=== PATIENT | female | born 1970 | race Caucasian/White ===

== ENCOUNTER 2017-04-18 06:19 | Observation (INO) ==
[2017-04-18] MEDS ORDERED: Aspirin 81 MG TAB.CHEW PO ONE (07:17)
[2017-04-18] MEDS ORDERED: 0.9 % Sodium Chloride 500 ML IVC ONE (07:17)
[2017-04-18 07:29] LABS: Basophils % 0.4 %; Eosinophils # 0.1 K/mcL (0.0-0.6); Eosinophils % 0.8 %; Hemoglobin 11.9 g/dL (11.5-15.4); Immature Granulocytes % 0.9 % (0-4); Lymphocytes # 1.5 K/mcL (0.6-4.6); Lymphocytes % 16.7 %; Mean Corpuscular HGB Conc 32.2 g/dL (31.6-35.5); Mean Corpuscular Hemoglobin 26.3 pg (28.0-33.3); Mean Corpuscular Volume 81.7 fL (83.0-100.0); Mean Platelet Volume 9.2 fL (9.4-12.4); Monocytes # 0.7 K/mcL (0.0-1.3); Monocytes % 7.4 %; Neutrophils # 6.7 K/mcL (1.6-8.9); Platelet Count 234 K/mcL (140-400); Red Blood Count 4.53 M/mcL (3.82-4.97); Red Cell Distribution Width 15.6 % (11.5-14.5); Segmented Neutrophils % 73.8 %
--- NOTE | 2017-04-18 07:30 | Emergency Department Note ---
Disposition Clinical Impression: Pulmonary embolism Qualifiers: Pulmonary embolism type: other Chronicity: unspecified Acute cor pulmonale presence: without acute cor pulmonale Qualified Code(s): I26.99 - Other pulmonary embolism without acute cor pulmonale Chest pain Qualifiers: Chest pain type: unspecified Qualified Code(s): R07.9 - Chest pain, unspecified Disposition: Admitted As Inpatient Condition: Fair Referrals: Bety Craig MD [Primary Care Provider] - Forms: ED Satisfaction Letter Chest Pain HPI - General Chief Complaint: ED Chest Pain Stated Complaint: chest pain dx PE yesterday Time Seen by Provider: 04/18/17 07:05 Source: patient Mode of arrival: ambulatory Limitations: no limitations Vital Signs Reviewed: Yes Nursing Notes Reviewed: Yes - History of Present Illness HPI Narrative: 47-year-old female history of hypertension and recent diagnosis of pulmonary embolism presents for evaluation of chest pain. Patient states that she had an ultrasound of her leg as she was having leg cramping and shortness of breath on Thursday. Patient's ultrasound was negative for DVT per her history. Patient subsequently continued to have worsening shortness of breath and had a CT of the chest which showed a pulmonary embolism. Patient was started on 02. Patient's completed 2 doses of his relative. Patient notes that she has had some non-exertional retrosternal chest pain with radiation of both arms in the past 24 hours. Initial symptoms started last night. Noticed to have a sensation in the middle of her chest. Also associated with some nausea and dyspnea. No vomiting. No fevers. Slight cough. Patient denies history of heart attacks. The patient notes that she did have some recent travel and has a job where she has a sedentary lifestyle. Likely provoked DVT from sedentary lifestyle, obesity, OCP. Pt complaint: chest pain Severity scale (1-10): 4 - Related Data Previous Rx's Medication Instructions Recorded Rivaroxaban [Xarelto] 1 dose PO AD 30 Days 04/17/17 Allergies Allergy/AdvReac Type Severity Reaction Status Date / Time Penicillins Allergy See Verified 04/17/17 09:47 Comments Iodinated Contrast- Oral and AdvReac Mild Vomiting Verified 04/17/17 09:47 IV Dye All systems ED: reviewed and negative except as stated. Constitutional: Reports: as per HPI. Denies: fever Eyes: Reports: as per HPI ENT ED: Reports: as per HPI Cardiovascular: Reports: as per HPI, chest pain Respiratory: Reports: as per HPI, cough, dyspnea Genitourinary: Reports: as per HPI Musculoskeletal: Reports: as per HPI Integumentary: Reports: as per HPI Neurological: Reports: as per HPI Psychiatric: Reports: as per HPI Endocrine: Reports: as per HPI Hematological/Lymphatic: Reports: as per HPI Allergic/Immunologic: Reports: as per HPI Chest Pain PMH - Past Medical History Medical history: Reports: hypertension, pulmonary embolus Surgical history: Reports: appendectomy, Psychiatric history: Reports: anxiety, depression STUDENT DEAN history: Reports: no STUDENT DEAN history - Social History Smoking Status: Never smoker Alcohol use: Reports: rarely Drug use: Reports: none Physical Exam - General Limitations: no limitations General appearance: alert, in no apparent distress - Head Head exam: atraumatic, normocephalic, normal inspection - Eye Eye exam: Present: normal appearance, EOMI - ENT ENT exam: normal exam, normal oropharynx, mucous membranes moist - Neck Neck exam: Present: normal inspection, trachea midline - Chest Chest inspection: Present: normal inspection, symmetric chest wall rise - Respiratory Respiratory exam: Present: normal lung sounds bilaterally. Absent: respiratory distress - Cardiovascular Cardiovascular exam: Present: regular rate, normal rhythm - Abdominal Exam Abdominal exam: Present: soft, Non-Tender - Extremities Exam Extremities exam: Present: normal inspection. Absent: pedal edema - Back Exam Back exam: Present: normal inspection. Absent: CVA tenderness (R), CVA tenderness (L) - Neurological Exam Neurological exam: Present: alert, oriented X3, CN II-XII intact - Skin Skin exam: Present: warm, dry, intact, normal color Course Course Narrative: Patient records reviewed, patient does have risk factors for PE. Patient was diagnosed with PE on 02. Due to the patient's worsening chest pain. Patient likely benefit from inpatient management of her PE initially as well as an echocardiogram. Patient will get a screening cardiac evaluation EKG, chest x- ray and lab work. Disposition likely admission. - Reevaluation(s) Reevaluation #1: Patient seen and examined. The patient was given her morning doses relative. Patient will be admitted to hospital service for further monitoring. Patient would likely benefit from extended cardiopulmonary evaluation with an echo to evaluate for right heart strain. Patient would feel more comfortable being admitted as well. Lab work and workup discussed with the patient at bedside. All questions were answered. Time: 08:09 Vital Signs Temperature 97.9 F 04/18/17 06:20 Pulse Rate 116 04/18/17 06:20 Respiratory Rate 20 04/18/17 06:20 Blood Pressure 159/91 04/18/17 06:20 O2 Sat by Pulse Oximetry 95 04/18/17 06:20 Temperature 97.9 F 04/18/17 06:20 Pulse Rate 105 04/18/17 08:01 Respiratory Rate 20 04/18/17 08:01 Blood Pressure 136/77 04/18/17 08:01 O2 Sat by Pulse Oximetry 96 04/18/17 08:01 Oxygen Delivery Oxygen Delivery Room Air Chest Pain - MDM Narrative Medical decision making narrative: 47 old female with recent diagnosis of PE yesterday present for evaluation of worsening chest pain. Patient's records review does show that she has a right lower lobe PE. Patient EKG shows sinus tachycardia. Patient was given 2 doses of Xarelto prior to presentation. No evidence of occult bleeding. Patient received her scheduled dose is relatively in the emergency department. Given the fact the patient has been having worsening chest pain patient was thought best for observation and further cardiopulmonary evaluation with an echo. Patient felt more comfortable being admitted and getting appropriate pain control. Patient case was discussed with the hospitalist. Patient workup also discussed with the patient at bedside. All questions were answered. Patient has a negative troponin with no acute changes in EKG. Patient be admitted for further evaluation and monitoring. - Lab Data Lab results reviewed: Yes I reviewed the patient's lab results. Result diagrams: 04/18/17 06:54 04/18/17 06:54 Lab Results 04/18/17 04/18/17 04/18/17 Range/Units 06:54 06:54 06:54 WBC 9.0 (4.3-11.1) K/mcL RBC 4.53 (3.82-4.97) M/mcL Hgb 11.9 (11.5-15.4) g/dL Hct 37.0 (35.3-44.9) % MCV 81.7 L (83.0-100.0) fL MCH 26.3 L (28.0-33.3) pg MCHC 32.2 (31.6-35.5) g/dL RDW 15.6 H (11.5-14.5) % Plt Count 234 (140-400) K/mcL MPV 9.2 L (9.4-12.4) fL Immature Gran % 0.9 (0-4) % Seg Neutrophils % 73.8 % Lymphocytes % 16.7 % Monocytes % 7.4 % Eosinophils % 0.8 % Basophils % 0.4 % Neutrophils # 6.7 (1.6-8.9) K/mcL Lymphocytes # 1.5 (0.6-4.6) K/mcL Monocytes # 0.7 (0.0-1.3) K/mcL Eosinophils # 0.1 (0.0-0.6) K/mcL Basophils # 0.0 (0.0-0.2) K/mcL PT 15.9 H (9.4-12.1) Seconds INR 1.5 APTT 32.5 (26.0-36.0) Seconds Sodium 137 (136-145) mEq/L Potassium 4.1 (3.5-4.5) mEq/L Chloride 104 (98-109) mEq/L Carbon Dioxide 21 (19-29) mEq/L BUN 12 (7-20) mg/dL Creatinine 0.67 (0.57-1.11) mg/dL Est GFR ( Amer) > 60 (> 60) Est GFR (Non-Af Amer) > 60 (> 60) BUN/Creatinine Ratio 18 (6-26) Glucose 159 H (70-99) mg/dL Calculated Osmolality 287 (280-300) Calcium 8.7 (8.6-10.8) mg/dL Troponin I (0-0.03) ng/mL 04/18/17 Range/Units 06:54 WBC (4.3-11.1) K/mcL RBC (3.82-4.97) M/mcL Hgb (11.5-15.4) g/dL Hct (35.3-44.9) % MCV (83.0-100.0) fL MCH (28.0-33.3) pg MCHC (31.6-35.5) g/dL RDW (11.5-14.5) % Plt Count (140-400) K/mcL MPV (9.4-12.4) fL Immature Gran % (0-4) % Seg Neutrophils % % Lymphocytes % % Monocytes % % Eosinophils % % Basophils % % Neutrophils # (1.6-8.9) K/mcL Lymphocytes # (0.6-4.6) K/mcL Monocytes # (0.0-1.3) K/mcL Eosinophils # (0.0-0.6) K/mcL Basophils # (0.0-0.2) K/mcL PT (9.4-12.1) Seconds INR APTT (26.0-36.0) Seconds Sodium (136-145) mEq/L Potassium (3.5-4.5) mEq/L Chloride (98-109) mEq/L Carbon Dioxide (19-29) mEq/L BUN (7-20) mg/dL Creatinine (0.57-1.11) mg/dL Est GFR ( Amer) (> 60) Est GFR (Non-Af Amer) (> 60) BUN/Creatinine Ratio (6-26) Glucose (70-99) mg/dL Calculated Osmolality (280-300) Calcium (8.6-10.8) mg/dL Troponin I 0.01 (0-0.03) ng/mL - Radiology Data Radiology results reviewed: Yes I reviewed the patient's radiology results. Chest X-Ray 04/18/17 07:17 IMPRESSION: No evidence of acute cardiopulmonary disease. D/ / Zev Villafuerte MD / Zev Villafuerte MD Interpreting Provider: Zev Villafuerte MD - EKG Data EKG attestation: Yes I reviewed and interpreted this EKG. EKG shows normal: sinus rhythm Rate: tachycardia Rhythm: NSR [place]/QRS: normal Interpretation: no acute changes Heart Score - Score History: Moderately Suspicious EKG: Non Specific repolarisation Disturbance Age: 45-65 Risk Factors: 1-2 risk factors Troponin: Less than normal limit HEART Score Total: 4 Attestation Statement - Attestation Attestation: I examined this patient and my medical decision-making was reviewed with the CONSTRUCTION EQUIPMENT OVERHAULER/PA/Advanced Practice Nurse/Resident Physician. I agree with the documented findings, disposition and treatment plan as described except to the extent set forth below. [id number] time provided She appears in no acute distress on exam. She was diagnosed with a pulmonary embolism by CT a chest yesterday. Transcribed report reviewed by me. Patient appears in no acute distress on exam
[2017-04-18 07:52] LABS: BUN/Creatinine Ratio 18 (6-26); Blood Urea Nitrogen 12 mg/dL (7-20); Calcium 8.7 mg/dL (8.6-10.8); Carbon Dioxide 21 mEq/L (19-29); Chloride 104 mEq/L (98-109); Glucose 159 mg/dL (70-99); Osmolality,Calculated 287 (280-300); Potassium 4.1 mEq/L (3.5-4.5); Sodium 137 mEq/L (136-145); eGFR For African Americans > 60 (> 60); eGFR For Non-African Americans > 60 (> 60)
[2017-04-18] MEDS ORDERED: *HR* Rivaroxaban 15 MG TABLET PO ONE (08:08)
[2017-04-18 08:13] LABS: INR 1.5; Prothrombin Time 15.9 Seconds (9.4-12.1)
[2017-04-18 08:16] LABS: Activated Partial Thrombo Time 32.5 Seconds (26.0-36.0)
[2017-04-18] MEDS ORDERED: Naloxone 0.4 MG/ML INJ IVP PRN (11:07)
[2017-04-18] MEDS ORDERED: Ibuprofen 400 MG TABLET PO PRN (11:08)
--- NOTE | 2017-04-18 11:22 | Internal Med History&Physical ---
<Nakia Rivera - Last Filed: 04/18/17 11:40> Date of Encounter: 04/18/17 Time of Encounter: 11:12 Assessment and Plan (1) Chest pain Current visit: Yes Status: Acute 1 patient presented with midsternal chest burning radiating into both arms no aggravating or relieving factors. Symptoms resolved on own. Patient does have recent diagnosis of pulmonary embolism and has been taking Xarelto as prescribed. Troponin was negative we will continue to trend-suspect this may be pleuritic related to recent diagnosis of pulmonary embolism we will continue with NSAIDs 2 Will obtain cardiac echo rule out possible right ventricular strain however CTA performed Thursday revealed no evidence of right particular strain-BNP is negative 3 continuous cardiac monitoring-patient is tachycardic however there is no right bundle branch block no evidence of right ventricular strain on EKG 4 patient did receive aspirin Qualifiers: Chest pain type: unspecified Qualified Code(s): R07.9 - Chest pain, unspecified (2) HTN (hypertension) Current visit: Yes Status: Acute 1 presently controlled with continue with home medications Qualifiers: Hypertension type: essential hypertension Qualified Code(s): I10 - Essential (primary) hypertension (3) DVT prophylaxis Current visit: Yes Status: Acute patient is on xarelto (4) Pulmonary embolism Current visit: No Status: Chronic 1 continue with xarelto Qualifiers: Pulmonary embolism type: other Chronicity: acute Acute cor pulmonale presence: without acute cor pulmonale Qualified Code(s): I26.99 - Other pulmonary embolism without acute cor pulmonale Internal Medicine - H&P: HPI Chief complaint: CP Admitted From: Emergency Dept Plans for Post Hospital Care: Home History of present illness: Ms. Brown is a 47 year old female with a history of hypertension pulmonary embolism. According to patient she began to experience R lower extremity pain and bilateral Lower extremity swelling beginning earlier in the week as well as shortness of breath. Patient does have risk factors for DVT/ PE including obesity and sedentary lifestyle and control. She did see her primary care physician who did complete a venous Doppler lower extremities which was negative for any DVT. CTA was performed on Thursday as an outpatient which did reveal pulmonary embolism and right lower lung no right ventricular strain noted at that time.She was sent to the ER and was prescribed Xarelto discharged home. Patient did take 2 doses of her Xarelto as prescribed. Thursday evening she began to experience midsternal chest burning which was constant radiating to both arms, no associated symptoms of nausea and shortness of breath or lightheadedness diaphoresis. There were no aggravating or relieving factors and the sensation resolved on its own. She said approximate 5 AM the pain returned which did wake her from sleep, She presented to the ER for evaluation. ER records revealed the patient's lab work was unremarkable troponin was 0.01 BNP was loosened and EKG sinus tachycardia were no right bundle branch block no right axis deviation no T wave inversions, which would indicate right ventricular strain . Chest x-ray with no acute process She was admitted for further workup and observation. Presently patient denies any chest pain or shortness of breath. She does not appear to be in respiratory distress. Lung sounds are clear heart sounds are regular S1 and S2 with no rubs the [place] is noted no reproducible chest pain. Abdomen soft nontender lower extremities with no edema Homans signs negative bilaterally. Presently she is hemodynamically stable. Discussed with Dr. Tay who agrees with plan Past Med Surg Social Fam HX - Past Medical History Medical history: hypertension, pulmonary embolus Psychiatric history: anxiety, depression - Past Surgical History Surgical History: appendectomy, - Social History Smoking Status: Never smoker Smokeless Tobacco Status: No Alcohol use: rarely Drug use: none - Family History Mother Living Status: Still Living Hx Family Cardiac Disorders: Yes (a.fib) Internal Medicine - H&P: Meds Unable To Obtain [Unable to Obtain] 04/18/17 [History] Allergies lisinopril Allergy (Verified 04/18/17 10:07) Rash Penicillins Allergy (Verified 04/17/17 09:47) See Comments Iodinated Contrast- Oral and IV Dye Adverse Reaction (Mild, Verified 04/17/17 09 :47) Vomiting All Systems PM: A 10-system review of systems was performed and is negative for pertinent findings except as documented above in the HPI. - Constitutional Constitutional: no chills, no fever(s), no night sweats - EENT Eyes: no change in vision, no discharge, no pain, no photophobia Ears: no ear discharge, no ear pain, no tinnitus Nose, mouth and throat: no dysphagia, no nasal discharge, no neck pain, no sore throat - Cardiovascular Cardiovascular ROS IM: chest pain, dyspnea, edema - Respiratory Respiratory: cough - Gastrointestinal Gastrointestinal: no abdominal pain, no diarrhea, no hematemesis, no hematochezia, no melena, no nausea, no vomiting - Genitourinary Genitourinary: no change in urinary stream, no dysuria, no flank pain, no hematuria - Musculoskeletal Musculoskeletal ROS IM: no numbness, no tingling - Integumentary Integumentary IM: no rash, no unusual bruising - Neurological Neurological ROS: no confusion, no convulsions, no focal weakness, no numbness, no tingling, no tremor(s) - Hematologic/Lymphatic Hematologic/Lymphatic: no easy bruising - Constitutional Vitals: Temp Pulse Resp BP Pulse Ox 98.5 F 89 18 143/89 95 04/18/17 10:10 04/18/17 10:10 04/18/17 10:10 04/18/17 10:10 04/18/17 10:10 General appearance: Present: A&O X 3, morbidly obese, answers questions appropriately - Head Head exam: Present: atraumatic, normocephalic - Eye Eye exam: Present: PERRL, conjuntiva pink, sclera anicteric Pupils: Present: PERRL - Neck Neck exam general surgery: Present: supple, trachea midline. Absent: lymphadenopathy - Respiratory Respiratory exam: Present: CTAB. Absent: accessory muscle use, rales, rhonchi, wheezes - Cardiovascular Cardiovascular exam: Present: RRR, +S1, +S2. Absent: diastolic murmur, gallop, rubs, systolic murmur - GI/Abdominal GI/Abdominal exam: Present: normal bowel sounds, soft, no peritoneal signs. Absent: distended, tenderness - Extremities Exam Extremities exam: Present: warm, radial pulses palpable and symetrical. Absent : calf tenderness, cyanotic, pedal edema - Neurological Exam Neurological exam: Present: CN II-XII intact, oriented X3, no focal deficits. Absent: pronater drift, facial droop, speech deficit - Skin Skin exam: Present: dry, intact Internal Med - H&P Results - Labs CBC & Chem 7: 04/18/17 06:54 04/18/17 06:54 - EKG Data EKG shows normal: sinus rhythm <Derek Tay T - Last Filed: 04/18/17 13:00> Date of Encounter: 04/18/17 Internal Medicine - H&P: HPI History of present illness: Ms. Brown is a 47 year old female All Systems PM: A 10-system review of systems was performed and is negative for pertinent findings except as documented above in the HPI. - Constitutional Vitals: Temp Pulse Resp BP Pulse Ox 98.5 F 89 18 143/89 95 04/18/17 10:10 04/18/17 10:10 04/18/17 10:10 04/18/17 10:10 04/18/17 10:10 Internal Med - H&P Results - Labs CBC & Chem 7: 04/18/17 06:54 04/18/17 06:54 - Attending Attestation Patient is seen independently and examined , plan of care discussed with RAMILA Rivera 47 Y/O F with Morbid Obesity BMI 51.5, HTN, on OCP, sedentary lifestyle She had been diagnosed with Acute sub-segmental PE yesterday in the ER , and started on appropriate anticoaulation, represented to ER today because she developed chest pain Physical exam remarkable for morbid obesity and mild sinus tachycardia, HR 106. Systemic exam unremarkable Labs and Imaging reviewed A/P: Chest pain, possibly from PE, stable, r/o ACS, obtain second set of troponin, ECHO, CTA already showed no R heart strain, BNP is normal , EKG shows only patient will be discharged today if results come back unremarkable, continue Xarelto, add pain control Educated to be more active and change form of contraception Rest of details as in RAMILA Rivera documentation, which I agree with
[2017-04-18] MEDS ORDERED: amLODIPine 5 MG TABLET PO SCH (20:40)
[2017-04-18] MEDS ORDERED: Spironolactone 25 MG TABLET PO SCH (20:40)
[2017-04-18] MEDS: *HR* Rivaroxaban 15 MG TABLET PO SCH (21:12)
[2017-04-19] MEDS ORDERED: *HR* LORazepam 0.5 MG TABLET PO ONE (04:05)
[2017-04-19] MEDS: *HR* Rivaroxaban 15 MG TABLET PO SCH (08:49)
[2017-04-19] MEDS ORDERED: amLODIPine 5 MG TABLET PO SCH (09:00)
[2017-04-19] MEDS ORDERED: Spironolactone 25 MG TABLET PO SCH (09:00)
[2017-04-19] MEDS ORDERED: Acetaminophen 325 MG TABLET PO PRN (11:08)
[2017-04-19 11:37] VITALS: BP 143/80
--- NOTE | 2017-04-19 12:40 | Discharge Summary ---
Date of Encounter: 04/20/17 Time of Encounter: 12:39 - Discharge Diagnosis (1) Chest pain Priority: Primary Status: Acute Qualifiers: Chest pain type: unspecified Qualified Code(s): R07.9 - Chest pain, unspecified (2) Pulmonary embolism Priority: Secondary Status: Acute Qualifiers: Pulmonary embolism type: other Chronicity: unspecified Acute cor pulmonale presence: without acute cor pulmonale Qualified Code(s): I26.99 - Other pulmonary embolism without acute cor pulmonale (3) HTN (hypertension) Priority: Secondary Status: Acute Qualifiers: Hypertension type: essential hypertension Qualified Code(s): I10 - Essential (primary) hypertension (4) Right leg pain Priority: Secondary Status: Acute (5) DVT prophylaxis Priority: Secondary Status: Acute - Discharge Medications Home Medications: Citalopram [CeleXA] 40 mg PO QPM 04/18/17 [History] Spironolactone [Aldactone] 25 mg PO DAILY 04/18/17 [History] amLODIPine [Norvasc] 5 mg PO DAILY 04/18/17 [History] Rivaroxaban [Xarelto] 15 mg PO BID tablet 04/19/17 [Rx] Spironolactone [Aldactone] 25 mg PO QPM tablet 04/19/17 [Rx] Allergies/Adverse Reactions: Allergies lisinopril Allergy (Verified 04/18/17 10:07) Rash Penicillins Allergy (Verified 04/17/17 09:47) See Comments Iodinated Contrast- Oral and IV Dye Adverse Reaction (Mild, Verified 04/17/17 09 :47) Vomiting Date of admission: 04/18/17 09:36 Primary care physician: Bety Craig, Discharging clinician: Clay Morelos - Patient Status Disposition: Home, Self-Care Condition: Fair Functional capacity at discharge: independent ambulation Overall status at discharge: patient is progressing back to baseline - Discharge Instructions Instructions: Rivaroxaban (By mouth), Cardiac Stress Test (DC), Pulmonary Embolism (DC) Follow Up With: Bety Craig MD [Primary Care Provider] - (office closed on weekend. web request made for cardiology.) - Diet and Activity Activity: increase activity as tolerated Diet: low fat, low cholesterol Interval History: Ms. Brown is a 47 year old female with a history of hypertension pulmonary embolism. According to patient she began to experience R lower extremity pain and bilateral Lower extremity swelling beginning earlier in the week as well as shortness of breath. Patient does have risk factors for DVT/ PE including obesity and sedentary lifestyle and control. She did see her primary care physician who did complete a venous Doppler lower extremities which was negative for any DVT. CTA was performed on Thursday as an outpatient which did reveal pulmonary embolism and right lower lung no right ventricular strain noted at that time.She was sent to the ER and was prescribed Xarelto discharged home. Patient did take 2 doses of her Xarelto as prescribed. Thursday evening she began to experience midsternal chest burning which was constant radiating to both arms, no associated symptoms of nausea and shortness of breath or lightheadedness diaphoresis. There were no aggravating or relieving factors and the sensation resolved on its own. She said approximate 5 AM the pain returned which did wake her from sleep, She presented to the ER for evaluation. ER records revealed the patient's lab work was unremarkable troponin was 0.01 BNP was loosened and EKG sinus tachycardia were no right bundle branch block no right axis deviation no T wave inversions, which would indicate right ventricular strain . Chest x-ray with no acute process She was admitted for further workup and observation. Presently patient denies any chest pain or shortness of breath. She does not appear to be in respiratory distress. Presently she is hemodynamically stable. Hospital course: Patient was hospitalized. 3 troponins were drawn and negative. Her EKG did not show any ST-T changes or any changes suggestive of myocardial infarction. Patient underwent transthoracic echocardiogram. Her left ventricular ejection fraction was 60%. No evidence of pulmonary hypertension/right ventricular abnormality. No obvious significant valvular dysfunction. Patient complains of off and on chest pain. I offered patient the option of a stress test. Patient is very keen to go home Risk, benefit, and one-page and disadvantage along with alternative options discussed. I offered patient already cardiology appointment on likely Thursday / and possible outpatient stress test. Plan: Home today. Continue Xarelto. Patient has a prescription and refills for Xarelto. I have given hand written prescription for ASA/Stain Resume home medication. will get cardiology appointment by this week to have more definative plan of care for chest pain She will see her primary care doctor in 1-2 weeks. All questions answered. At the time of discharge patient does not have any questions, concerns, updated and recommendations. 04/20/2017 I called patient is morning and informed her that she will be seeing by cardiology on Thursday04/22/2017. I also informed patient that her hemoglobin A1c is 6.4 Option discussed medical/pharmaceutical treatment versus diet and exercise along with recheck blood sugar in 4 months. Patient choose to have a diet and exercise option and she will get her PCP to check A1c in 4 months. At the time of phone conversation patient did not have any further questions. Patient verbalized understanding. - Time Spent with Patient Total time spent providing and/or coordinating discharge services: - Constitutional Vitals: Temp Pulse Resp BP Pulse Ox 97.9 F 87 16 143/80 98 04/19/17 11:18 04/19/17 11:18 04/19/17 11:18 04/19/17 11:18 04/19/17 11:18 General appearance: Present: A&O X 3, morbidly obese, answers questions appropriately - Head Head exam: Present: atraumatic, normocephalic - Eye Eye exam: Present: PERRL, conjuntiva pink, sclera anicteric Pupils: Present: PERRL - Neck Neck exam general surgery: Present: supple, trachea midline. Absent: lymphadenopathy - Respiratory Respiratory exam: Present: CTAB. Absent: accessory muscle use, rales, rhonchi, wheezes - Cardiovascular Cardiovascular exam: Present: RRR, +S1, +S2. Absent: diastolic murmur, gallop, rubs, systolic murmur - GI/Abdominal GI/Abdominal exam: Present: normal bowel sounds, soft, no peritoneal signs. Absent: distended, tenderness - Extremities Exam Extremities exam: Present: warm, radial pulses palpable and symetrical. Absent : calf tenderness, cyanotic, pedal edema - Neurological Exam Neurological exam: Present: CN II-XII intact, oriented X3, no focal deficits. Absent: pronater drift, facial droop, speech deficit - Skin Skin exam: Present: dry, intact
[2017-04-19 13:33] LABS: Hemoglobin A1C 6.4 %
== END 2017-04-19 14:02 | disposition home or self-care (01) ==
LOC: EMEROO 06:19 → 3NENU 06:19
PROVIDERS: ADMIT Internal Medicine; ATTEND Internal Medicine

== ENCOUNTER 2020-10-07 04:26 | Observation (INO) ==
[2020-10-07 05:43] LABS: Basophils % 0.6 %; Eosinophils # 0.1 K/mcL (0.0-0.6); Eosinophils % 0.9 %; Hematocrit 44.4 % (35.3-44.9); Hemoglobin 13.8 g/dL (11.5-15.4); Immature Granulocytes % 0.2 % (0-4); Lymphocytes % 17.8 %; Mean Corpuscular HGB Conc 31.1 g/dL (31.6-35.5); Mean Corpuscular Hemoglobin 25.5 pg (28.0-33.3); Mean Corpuscular Volume 81.9 fL (83.0-100.0); Mean Platelet Volume 9.2 fL (9.4-12.4); Monocytes # 0.5 K/mcL (0.0-1.3); Monocytes % 8.9 %; Neutrophils # 3.9 K/mcL (1.6-8.9); Platelet Count 224 K/mcL (140-400); Red Blood Count 5.42 M/mcL (3.82-4.97); Segmented Neutrophils % 71.6 %; White Blood Count 5.4 K/mcL (4.3-11.1)
[2020-10-07 05:45] LABS: INR 1.1; Prothrombin Time 12.5 Seconds (9.4-12.1)
[2020-10-07 05:47] LABS: Activated Partial Thrombo Time 28.1 Seconds (26.0-36.0)
[2020-10-07 05:59] LABS: D-Dimer < 215 ng/mLFEU (0-500)
[2020-10-07 06:12] LABS: BUN/Creatinine Ratio 26 (6-26); Blood Urea Nitrogen 13 mg/dL (6-20); Calcium 9.1 mg/dL (8.6-10.3); Carbon Dioxide 24 mEq/L (23-29); Chloride 101 mEq/L (98-107); Glucose 194 mg/dL (70-105); Osmolality,Calculated 287 (280-300); Potassium 4.1 mEq/L (3.5-5.1); Sodium 136 mEq/L (136-145); eGFR For African Americans > 60 (> 60); eGFR For Non-African Americans > 60 (> 60)
[2020-10-07 06:13] LABS: Troponin I < 0.03 ng/mL (< 0.04)
[2020-10-07] MEDS ORDERED: Aspirin 325 MG TABLET PO ONE (06:47)
[2020-10-07] MEDS ORDERED: *HR* Dextrose 50 % in Water (Vial) 50 ML VIAL IVP PRN (07:54)
[2020-10-07] MEDS ORDERED: Dextrose Gel 15 GM/37.5 ML TUBE PO PRN ×2 (07:54)
[2020-10-07] MEDS ORDERED: Naloxone 0.4 MG/ML INJ IVP PRN (07:54)
[2020-10-07] MEDS ORDERED: D5% in Water 1,000 ML IVC PRN (07:54)
[2020-10-07 09:11] LABS: Estimated Average Glucose 214 mg/dl; Hemoglobin A1C 9.1 %
[2020-10-07] MEDS ORDERED: Insulin LISPRO 300 UNITS/3 ML VIAL SUBQ SCH (12:00)
[2020-10-07 12:02] VITALS: BP 115/76
[2020-10-07 13:10] LABS: Albumin 4.3 g/dL (3.5-5.7); Albumin/Globulin Ratio 1.3 (1.1-2.2); Bilirubin,Direct 0.1 mg/dL (0.0-0.2); Bilirubin,Indirect 0.3 mg/dL (0.0-1.0); Bilirubin,Total 0.4 mg/dL (0.3-1.0); Chol/HDL Ratio 2.8 (0-4.9); Globulin 3.3 g/dL (2.4-3.5); Magnesium 1.6 mg/dL (1.6-2.6); Phosphorous 3.6 mg/dL (2.7-4.5); Total Protein 7.6 g/dL (6.4-8.9)
[2020-10-07] MEDS ORDERED: *HR* Heparin 5,000 UNIT/ML VIAL SQ SCH (14:00)
[2020-10-07] MEDS ORDERED: Insulin DETEMIR 100 UNIT/ML X5UNITS SUBQ SCH (21:00)
== END 2020-10-07 14:34 | disposition home or self-care (01) ==
LOC: 3BNU 04:26 → EMEROOARM 04:26 → 3BNU 07:40
PROVIDERS: ADMIT Student in an Organized Health Care Education/Training Program; ATTEND Student in an Organized Health Care Education/Training Program